=== PATIENT | male | born 1960 | race Caucasian/White ===

== ENCOUNTER 2016-11-10 15:15 | Emergency (ER) | payer OTHER ==
[~2016-11-10] VITALS: Ht 177.8 cm; Wt 93.0 kg
[2016-11-10 15:40] VITALS: BP 144/79
--- NOTE | 2016-11-10 15:40 | PHYS DOC ---
Past Medical History Past Medical History: Other Additional Past Medical Histor: TBI Adult General Chief Complaint Chief Complaint: LACERATION/AVULSION HPI HPI Patient is a 55 year old male presents to the emergency department stating that his daughter brought him a knife back from [place]. He states he had pulled his knife out of his pocket to cut some plastic links off a chain when the knife slipped and cut his right 4th finger. Bleeding is currently controlled. Patient states his last tetanus was in 2012. Review of Systems Review of Systems Constitutional: Denies fever or chills [] Eyes: Denies change in visual acuity, redness, or eye pain [] HENT: Denies nasal congestion or sore throat [] Respiratory: Denies cough or shortness of breath [] Cardiovascular: No additional information not addressed in HPI [] GI: Denies abdominal pain, nausea, vomiting, bloody stools or diarrhea [] : Denies dysuria or hematuria [] Musculoskeletal: Denies back pain or joint pain [] Integument: Denies rash or skin lesions. Laceration to 4th right finger Neurologic: Denies headache, focal weakness or sensory changes [] Endocrine: Denies polyuria or polydipsia [] Current Medications Current Medications Current Medications Medications (Trade) Dose Ordered Sig/Juju Start Time Stop Time Status Last Admin Dose Admin Diphtheria/ Tetanus/Acell Pertussis (Boostrix) 0.5 ml ONCE ONCE 11/10/16 16:30 11/10/16 16:31 Lidocaine/Sodium Bicarbonate (Buffered Lidocaine 1%) 20 ml 1X ONCE 11/10/16 15:45 11/10/16 15:56 DC Allergies Allergies Allergies Coded Allergies Type Severity Reaction Last Updated Verified No Known Drug Allergies 11/10/16 No Physical Exam Physical Exam Constitutional: Well developed, well nourished, no acute distress, non-toxic appearance. [] HENT: Normocephalic, atraumatic, bilateral external ears normal, oropharynx moist, no oral exudates, nose normal. [] Eyes: PERRLA, EOMI, conjunctiva normal, no discharge. [] Neck: Normal range of motion, no tenderness, supple, no stridor. [] Cardiovascular:Heart rate regular rhythm Lungs & Thorax: no respiratory distress noted Skin: Warm, dry, no erythema, no rash. [] Back: No tenderness Extremities: No tenderness, no cyanosis, no clubbing, ROM intact, no edema. [] Neurologic: Alert and oriented X 3, normal motor function, normal sensory function, no focal deficits noted. [] Psychologic: Affect normal, judgement normal, mood normal. [] Current Patient Data Vital Signs Vital Signs Date Time Temp Pulse Resp B/P (MAP) Pulse Ox O2 Delivery O2 Flow Rate FiO2 11/10/16 15:40 98.2 64 16 97 Room Air 98.2 EKG EKG [] Radiology/Procedures Radiology/Procedures [] Course & Med Decision Making Course & Med Decision Making Pertinent Labs and Imaging studies reviewed. (See chart for details) The area clean and dry. Clean the site twice day with soap and water and apply antibiotic ointment. Watch for signs symptoms of infection: Redness, warmth, tenderness or any yellow/greenish transient become from the site physician occur follow-up to primary care physician immediately. Signs and symptoms to return back to emergency department been provided. Recommended sutures out in 7- 10 days. Patient agrees with discharge instructions treatment regimens and follow-up recommendations. Also recommended Tylenol or ibuprofen for pain and discomfort. Elevation and ice packs as needed. [] Dragon Disclaimer Dragon Disclaimer This electronic medical record was generated, in whole or in part, using a voice recognition dictation system. Departure Departure Impression: Primary Impression: Laceration Disposition: 01 HOME, SELF-CARE Condition: STABLE Referrals: MCKENNA DEMPSEY (PCP) Patient Instructions: Laceration Care, Adult, Sutured Wound Care, [id number] Additional Instructions: Activity as tolerated. Medications as prescribed Tylenol or ibuprofen for pain and discomfort. Watch for signs and symptoms of infection redness, warmth, tenderness or any yellow/greenish drainage of a come from the site physician occur follow-up to primary care physician immediately. Clean the site twice daily with soap and water and apply antibiotic ointment to the area. Ice packs on 20 minutes off 20 minutes several times a day elevation as much as possible. Follow-up through primary care physician in 7-10 days for suture removal. Return back to emergency prior signs symptoms of become worse. Laceration/Wound Repair Laceration/Wound Repair : Wound Location: upper extremity Wound's Depth, Shape: superficial Wound Length (cm): 2 Wound Explored: clean Betadine Prep?: Yes Anesthesia: 1% Lidocaine Volume Anesthetic (ccs): 4 Wound Debrided: minimal Wound Repaired With: sutures Suture Size/Type: 3:0, nylon Number of Sutures: 6 Progress Injected for a digital block 4 ml into the right 4th finger. Site cleaned with betadine, Sutured with 3-0 nylon 6 interrupted sutures placed. DELMER ERICKSON APRN Nov 10, 2016 15:40
[2016-11-10] MEDS ORDERED: LIDOCAINE 1% / SOD BICARB 8.4% 20 ML VIAL. IJ ONE (15:45)
--- NOTE | 2016-11-10 16:09 | RAD ---
Right ring finger, 3 views, 11/10/2016: History: Laceration There is a soft tissue defect along the volar aspect of the distal end of the finger compatible with the history of a laceration. No radiopaque foreign body is evident in the soft tissues. No underlying acute fracture or dislocation is identified. IMPRESSION: No acute bony abnormality is detected.
[2016-11-10] MEDS ORDERED: DIPHTH,PERTUSS(ACELL),TET TOX 0.5 ML DISP.SYRIN. VAX IM ONE (16:30)
== END 2016-11-10 16:50 | disposition home or self-care (01) ==
LOC: ER 15:15
DX: S61.214A Laceration without foreign body of right ring finger without damage to nail, initial encounter (principal); W26.0XXA Contact with knife, initial encounter; Y93.89 Activity, other specified; Y99.8 Other external cause status; Y92.89 Other specified places as the place of occurrence of the external cause
CPT/HCPCS: 12001; 73140; 90471; 90715; 99284-25

== ENCOUNTER → 2019-08-13 | Outpatient (CLI) | payer OTHER ==
--- NOTE | 2019-08-15 14:36 | SLEEP ---
DATE OF STUDY: 08/13/2019 SLEEP STUDY ATTENDING PHYSICIAN: Po Rivera MD. The patient is a 58-year-old who weighs 230 pounds with a BMI of 33. The patient's [place] score was 5. The patient underwent diagnostic study performed at [facility]. During the night study, the patient spent 460 minutes in bed and slept for 335 minutes with a sleep efficiency of 81%. Sleep latency was prolonged as well as REM latency was prolonged at 311 minutes. Sleep architecture showed increased stage 1 and stage 2 sleep, normal slow wave and slightly reduced REM sleep. During the night study, the patient had 7 obstructive apneas, no mixed apneas and 4 central apneas and 36 hypopneas. The patient's AHI was 8 per hour, supine AHI 11 per hour with a REM AHI of 9 per hour. PLMS were seen at index of 4 per hour and 1 per hour caused EEG arousals. EKG monitoring revealed an average heart rate of 75 beats per minute, no sustained arrhythmias observed. Nocturnal oximetry study revealed a mean oxygen saturation of 93% with the lowest of 79%. 13% of time, oxygen saturation remained between 80% and 89%. Due to low AHI, the patient did not meet the split night criteria for CPAP initiation. IMPRESSION: 1. Mild obstructive sleep apnea at an AHI of 8 per hour. 2. Mild nocturnal hypoxia secondary to obstructive sleep apnea. 3. No clinically significant periodic limb movements. RECOMMENDATIONS: 1. The patient has mild SHADE. I would recommend weight loss as the initial form of treatment. 2. If the patient remains clinically symptomatic or has comorbid conditions, then consider treatment of sleep apnea with either CPAP versus oral appliance. 3. Avoid [employer] depressants. 4. Cautioned regarding driving until symptoms of sleep apnea resolve with above recommendations. NOE ANGUIANO MD DR: RORY/christen JOB#: [id number] / [id number] PO Henderson MD
== END ==
LOC: RT 18:05
PROVIDERS: ATTEND Family Medicine
DX: G47.33 Obstructive sleep apnea (adult) (pediatric) (principal); G47.34 Idiopathic sleep related nonobstructive alveolar hypoventilation
CPT/HCPCS: 95810